=== PATIENT | female | born 1965 | race Caucasian/White ===

== ENCOUNTER 2023-05-16 01:50 | Emergency (ER) | payer SELFPAY ==
--- NOTE | 2023-05-16 01:59 | ED ---
General Adult HPI - General Stated complaint: Overdose Time Seen by Provider: 05/16/23 01:54 - History of Present Illness Initial comments: Dictation was produced using [employer] dictation software. please excuse any grammatical, word or spelling errors. Chief Complaint: 58-year-old female presents with overdose History of Present Illness: Patient's 58-year-old female she is a poor historian. History present are as obtained from EMS. Patient was allegedly altered. Enforcement was called. Patient allegedly received 16 mg of intra nasal Narcan. EMS reports that enforcement notice improvement of her mentation. Patient does have a history of chronic pain in his access to oral morphine. Patient apparently has history of chronic abdominal pain and stomach/abdominal mass.patient is also prescribed benzodiazepines. The ROS documented in this emergency department record has been reviewed and confirmed by me. Those systems with pertinent positive or negative responses have been documented in the HPI. All other systems are other negative and/or noncontributory. - Related Data Allergies Allergy/AdvReac Type Severity Reaction Status Date / Time Bleach (Sodium Hypochlorite) Allergy Unknown Verified 05/16/23 02:01 Review of Systems ROS Statement: Those systems with pertinent positive or pertinent negative responses have been documented in the HPI. ROS Other: All systems not noted in ROS Statement are negative. General Exam - General Exam Comments Initial Comments: PHYSICAL EXAM: General Impression: Alert, arousable, yawning, mildly somnolent HEENT: Normocephalic atraumatic, extra-ocular movements intact, pupils equal and reactive to light bilaterally, mucous membranes moist. Cardiovascular: Heart regular rate and rhythm Chest: Able to complete full sentences, no retractions, no tachypnea Abdomen: abdomen soft, non-tender, non-distended, no organomegaly Musculoskeletal: Pulses present and equal in all extremities, no peripheral edema Motor: no focal deficits noted Neurological: CN II-XII grossly intact, no focal motor or sensory deficits noted Skin: Intact with no visualized rashes Psych: Normal affect and mood Course Vital Signs 05/16/23 05/16/23 05/16/23 01:54 01:55 03:00 Temperature 99.2 F Pulse Rate 115 H 117 H Pulse Rate [ 113 H Lead Cashier ] Respiratory 30 H 28 H Rate Blood Pressure 141/79 188/87 O2 Sat by Pulse 97 94 L Oximetry 05/16/23 04:00 Temperature Pulse Rate 107 H Pulse Rate [ Lead Cashier ] Respiratory 24 Rate Blood Pressure 154/92 O2 Sat by Pulse 93 L Oximetry - Reevaluation(s) Reevaluation #1: 05/16/23 04:20 More history was obtained from patient's ex- was at the bedside. He was alone who had called EMS. He apparently takes care of her. He states that patient has tried to wean herself off of her medications. States that today she took her analgesics and benzodiazepines at the same time. EKG Findings - EKG Comments: EKG Findings:: My EKG interpretation: Ventricular rate 109, sinus tachycardia,. 129, QRS 102, QTc 439. No SC prolongation, no QTC prolongation, no ST or T-wave changes noted.. Overall, this EKG is unremarkable Medical Decision Making - Medical Decision Making Was pt. sent in by a medical professional or institution (, PA, BLOOD DONOR UNIT ASSISTANT, urgent care, hospital, or senior living...) When possible be specific @ -No Did you speak to anyone other than the patient for history (EMS, parent, family, police, friend...)? What history was obtained from this source @ -History obtained from EMS and ex- at the bedside who is primary employment specialist Did you review nursing and triage notes (agree or disagree)? Why? @ -I reviewed and agree with nursing and triage notes Were old charts reviewed (outside hosp., previous admission, EMS record, old EKG, old radiological studies, urgent care reports/EKG's, senior living records)? Report findings @ -No old charts were reviewed Differential Diagnosis (chest pain, altered mental status, abdominal pain women, abdominal pain men, vaginal bleeding, musculoskeletal, weakness, fever, dyspnea, syncope, headache, dizziness, GI bleed, back pain, seizure, CVA, palpatations, mental health)? @ -Differential Altered Mental Status: Hypoglycemia, DKA, hypercapnia, ETOH, overdose, CO poisoning, trauma, myxedema coma, HTN encephalopathy, infection, encephalitis, psychosis, intercranial hemorrhage, hepatic encephalopathy, meningitis, CVA, this is not meant to be an all-inclusive list EKG interpreted by me (3pts min.). @ -See above X-rays interpreted by me (1pt min.). @ -None done CT interpreted by me (1pt min.). @ -Computed tomography scan of brain is unremarkable U/S interpreted by me (1pt. min.). @ -None done What testing was considered but not performed or refused? (CT, X-rays, U/S, labs)? Why? @ -None What meds were considered but not given or refused? Why? @ -None Did you discuss the management of the patient with other professionals (professionals i.e. DrKat, PA, BLOOD DONOR UNIT ASSISTANT, lab, RT, psych nurse, clinical social worker, platform beater, teacher, marketing officer, telehealth case manager)? Give summary @ -No Was smoking cessation discussed for >3mins.? @ -No Was critical care preformed (if so, how long)? @ -No Were there social determinants of health that impacted care today? How? (Ho melessness, low income, unemployed, alcoholism, drug addiction, transportation, low edu. Level, literacy, decrease access to med. care, care home, rehab)? @ -No Was there de-escalation of care discussed even if they declined (Discuss DNR or withdrawal of care, Hospice)? DNR status @ -No What co-morbidities impacted this encounter? (DM, HTN, Smoking, COPD, CAD, Cancer, CVA, ARF, Chemo, Hep., AIDS, mental health diagnosis, sleep apnea, morbid obesity)? @ -None Was patient admitted / discharged? Hospital course, mention meds given and route, prescriptions, significant lab abnormalities, going to OR and other pertinent info. @ -58-year-old female with past medical history of chronic pain presents via EMS from home for polysubstance ingestion. Ex- at the bedside states that patient took her analgesics and benzodiazepines at the same time. She allegedly had responded to Narcan by prehospital staff. Vital signs upon arrival are within acceptable limits. Patient does appear to be benzodiazepine toxic. Patient reevaluated at bedside with improvement of mentation. Patient will be monitored in the emergency department for sobriety and discharged home. Ex- reports that patient appears to be at her usual baseline Undiagnosed new problem with uncertain prognosis? @ -No Drug Therapy requiring intensive monitoring for toxicity (Heparin, Nitro, Insulin, Cardizem)? @ -No Were any procedures done? @ -No Diagnosis/symptom? Acute, or Chronic, or Acute on Chronic? Uncomplicated (without systemic symptoms) or Complicated (systemic symptoms)? @ -Opiate and benzodiazepine coingestion Side effects of treatment? @ -No Exacerbation, Progression, or Severe Exacerbation? @ -No Poses a threat to life or bodily function? How? (Chest pain, USA, NM, pneumonia, PE, COPD, DKA, ARF, appy, cholecystitis, CVA, Diverticulitis, Homicidal, Suicidal, threat to staff... and all critical care pts) @ -No - Lab Data Result diagrams: 05/16/23 02:22 05/16/23 03:00 Lab Results 05/16/23 05/16/23 05/16/23 Range/Units 02:22 02:22 03:00 WBC 13.1 H (3.8-10.6) k/uL RBC 5.64 H (3.80-5.40) m/uL Hgb 15.6 (11.4-16.0) gm/dL Hct 49.1 H (34.0-46.0) % MCV 87.1 (80.0-100.0) fL MCH 27.7 (25.0-35.0) pg MCHC 31.9 (31.0-37.0) g/dL RDW 14.7 (11.5-15.5) % Plt Count 172 (150-450) k/uL MPV 8.6 Neutrophils % 74 % Lymphocytes % 20 % Monocytes % 4 % Eosinophils % 1 % Basophils % 0 % Neutrophils # 9.7 H (1.3-7.7) k/uL Lymphocytes # 2.6 (1.0-4.8) k/uL Monocytes # 0.6 (0-1.0) k/uL Eosinophils # 0.2 (0-0.7) k/uL Basophils # 0.1 (0-0.2) k/uL PT 10.0 (9.0-12.0) sec INR 0.9 (<1.2) APTT 22.8 (22.0-30.0) sec Sodium (137-145) mmol/L Potassium (3.5-5.1) mmol/L Chloride (98-107) mmol/L Carbon Dioxide (22-30) mmol/L Anion Gap mmol/L BUN (7-17) mg/dL Creatinine (0.52-1.04) mg/dL Est GFR (CKD-EPI)AfAm (>60 ml/min/1.73 sqM) Est GFR (CKD-EPI)NonAf (>60 ml/min/1.73 sqM) Glucose (74-99) mg/dL Calcium (8.4-10.2) mg/dL Total Bilirubin (0.2-1.3) mg/dL AST (14-36) U/L ALT (4-34) U/L Alkaline Phosphatase (38-126) U/L Ammonia 29 (<30) umol/L Total Protein (6.3-8.2) g/dL Albumin (3.5-5.0) g/dL Salicylates mg/dL Urine Opiates Screen (NotDetected) Ur Oxycodone Screen (NotDetected) Urine Methadone Screen (NotDetected) Ur Propoxyphene Screen (NotDetected) Acetaminophen ug/mL Ur Barbiturates Screen (NotDetected) U Tricyclic Antidepress (NotDetected) Ur Phencyclidine Scrn (NotDetected) Ur Amphetamines Screen (NotDetected) U Methamphetamines Scrn (NotDetected) U Benzodiazepines Scrn (NotDetected) Urine Cocaine Screen (NotDetected) U Marijuana (THC) Screen (NotDetected) Serum Alcohol mg/dL 05/16/23 05/16/23 Range/Units 03:00 03:54 WBC (3.8-10.6) k/uL RBC (3.80-5.40) m/uL Hgb (11.4-16.0) gm/dL Hct (34.0-46.0) % MCV (80.0-100.0) fL MCH (25.0-35.0) pg MCHC (31.0-37.0) g/dL RDW (11.5-15.5) % Plt Count (150-450) k/uL MPV Neutrophils % % Lymphocytes % % Monocytes % % Eosinophils % % Basophils % % Neutrophils # (1.3-7.7) k/uL Lymphocytes # (1.0-4.8) k/uL Monocytes # (0-1.0) k/uL Eosinophils # (0-0.7) k/uL Basophils # (0-0.2) k/uL PT (9.0-12.0) sec INR (<1.2) APTT (22.0-30.0) sec Sodium 138 (137-145) mmol/L Potassium 3.4 L (3.5-5.1) mmol/L Chloride 100 (98-107) mmol/L Carbon Dioxide 32 H (22-30) mmol/L Anion Gap 6 mmol/L BUN 9 (7-17) mg/dL Creatinine 0.59 (0.52-1.04) mg/dL Est GFR (CKD-EPI)AfAm >90 (>60 ml/min/1.73 sqM) Est GFR (CKD-EPI)NonAf >90 (>60 ml/min/1.73 sqM) Glucose 89 (74-99) mg/dL Calcium 9.2 (8.4-10.2) mg/dL Total Bilirubin 0.6 (0.2-1.3) mg/dL AST 25 (14-36) U/L ALT 19 (4-34) U/L Alkaline Phosphatase 60 (38-126) U/L Ammonia (<30) umol/L Total Protein 6.2 L (6.3-8.2) g/dL Albumin 4.0 (3.5-5.0) g/dL Salicylates <1.0 mg/dL Urine Opiates Screen Detected H (NotDetected) Ur Oxycodone Screen Not Detected (NotDetected) Urine Methadone Screen Not Detected (NotDetected) Ur Propoxyphene Screen Not Detected (NotDetected) Acetaminophen <10.0 ug/mL Ur Barbiturates Screen Not Detected (NotDetected) U Tricyclic Antidepress Detected H (NotDetected) Ur Phencyclidine Scrn Not Detected (NotDetected) Ur Amphetamines Screen Not Detected (NotDetected) U Methamphetamines Scrn Not Detected (NotDetected) U Benzodiazepines Scrn Detected H (NotDetected) Urine Cocaine Screen Not Detected (NotDetected) U Marijuana (THC) Screen Not Detected (NotDetected) Serum Alcohol <10 mg/dL Disposition Clinical Impression: Accidental drug overdose Disposition: HOME SELF-CARE Condition: Good Instructions (If sedation given, give patient instructions): Adult Overdose (ED) Is patient prescribed a controlled substance at d/c from ED?: No Referrals: Nonstaff,Physician [Primary Care Provider] - 1-2 days Time of Disposition: 05:35
[2023-05-16] MEDS ORDERED: LORazepam 2 MG/ML INJ IV STA (02:29)
[2023-05-16 02:41] LABS: Basophils # (A) 0.1 k/uL (0-0.2); Basophils % (A) 0 %; Eosinophils # (A) 0.2 k/uL (0-0.7); Eosinophils % (A) 1 %; HCT 49.1 % (34.0-46.0); HGB 15.6 gm/dL (11.4-16.0); Lymphocytes # (A) 2.6 k/uL (1.0-4.8); Lymphocytes % (A) 20 %; MCH 27.7 pg (25.0-35.0); MCHC 31.9 g/dL (31.0-37.0); MCV 87.1 fL (80.0-100.0); Mean Platelet Volume 8.6; Monocytes # (A) 0.6 k/uL (0-1.0); Monocytes % (A) 4 %; Neutrophils # (A) 9.7 k/uL (1.3-7.7); Neutrophils % (A) 74 %; Platelet Count 172 k/uL (150-450); RBC 5.64 m/uL (3.80-5.40); RDW 14.7 % (11.5-15.5); WBC 13.1 k/uL (3.8-10.6)
[2023-05-16 03:22] LABS: INR 0.9 (<1.2); Partial Thromboplastin Time 22.8 sec (22.0-30.0)
[2023-05-16 03:30] LABS: ALT 19 U/L (4-34); AST 25 U/L (14-36); Acetaminophen <10.0 ug/mL; African American GFR (CKD) >90 (>60 ml/min/1.73 sqM); Alcohol <10 mg/dL; Alkaline Phosphatase 60 U/L (38-126); Anion Gap 6 mmol/L; Blood Urea Nitrogen 9 mg/dL (7-17); Calcium 9.2 mg/dL (8.4-10.2); Carbon Dioxide 32 mmol/L (22-30); Chloride 100 mmol/L (98-107); Glucose 89 mg/dL (74-99); Non-African American GFR(CKD) >90 (>60 ml/min/1.73 sqM); Potassium 3.4 mmol/L (3.5-5.1); Salicylate <1.0 mg/dL; Sodium 138 mmol/L (137-145); Total Bilirubin 0.6 mg/dL (0.2-1.3); Total Protein 6.2 g/dL (6.3-8.2)
--- NOTE | 2023-05-16 03:44 | CT ---
EXAMINATION TYPE: CT brain wo con CT DLP: 1099.4 mGycm, Automated exposure control for dose reduction was used. DATE OF EXAM: 05/16/2023 3:18 AM COMPARISON: None. CLINICAL INDICATION:Female, 58 years old with history of ams, TECHNIQUE: Brain: Multiple axial CT images of the brain were obtained without IV contrast. Coronal and sagittal reformats reviewed. FINDINGS: Brain: Extra-axial spaces: No abnormal extra-axial fluid collections. Ventricular system: Within normal limits Cerebral parenchyma: No acute intraparenchymal hemorrhage or mass effect. The rodas-white junction is well differentiated. Cerebellum: Unremarkable. Mass effect: No evidence of midline shift. Intracranial vasculature: unremarkable Soft tissues: Normal. Calvarium/osseous structures: No depressed skull fracture. Benign hyperostosis frontalis noted. Paranasal sinuses and mastoid air cells: The mastoid air cells are clear. Mild mucosal thickening of the left ethmoid sinus. Visualized orbits: Orbital contents are intact. IMPRESSION: No acute intracranial process.
[2023-05-16 04:10] LABS: Phencyclidine Screen,Urine Not Detected (NotDetected)
[2023-05-16 04:11] LABS: Amphetamine Screen,Urine Not Detected (NotDetected); Barbiturate Screen,Urine Not Detected (NotDetected); Benzodiazepines Screen,Urine Detected (NotDetected); Cocaine Screen,Urine Not Detected (NotDetected); Methadone Screen, Urine Not Detected (NotDetected); Opiate Screen,Urine Detected (NotDetected); Oxycodone Screen, Urine Not Detected (NotDetected); Tricyclic Antidepressant,Urine Detected (NotDetected); Urn Cannabinoid Scrn Not Detected (NotDetected)
[2023-05-16 05:22] VITALS: RESP 24
[2023-05-16 05:58] VITALS: BP 150/86; PULSE 105; TEMP 98.8
== END 2023-05-16 06:08 | disposition home or self-care (01) ==
LOC: EC 01:50
DX: T40.601A Poisoning by unspecified narcotics, accidental (unintentional), initial encounter (principal); Z88.8 Allergy status to other drugs, medicaments and biological substances
CPT/HCPCS: 36415; 93005; 80053; 82140; 85025; 85610; 85730; 80306; 80143; 80320; 80179; 70450; 99285; 96374; J2060

== ENCOUNTER → 2024-06-30 | Outpatient (CLI) | payer OTHER ==
[2024-07-21 06:37] VITALS: BP 133/81; PULSE 73; RESP 17; TEMP 97.9
--- NOTE | 2024-08-04 14:45 | CONS ---
CONSULTATION HISTORY OF PRESENT ILLNESS: April is a 59-year-old white female seen in consultation for Dr. Martin regarding a radiographic abnormality in the right breast. She underwent bilateral mammogram on 01/14/24. Following this, she was noted to have a lesion in the right breast in the lower outer midportion. It was 1.5 cm. This was a routine mammogram. An ultrasound was then done, which revealed at the 7 o'clock position, a lesion for which ultrasound core biopsy was recommended. The patient states that she has had a nodule in her right breast at the 12 o'clock position, which has increased in size over the past year. She did have some radiographic changes in the breast which were felt to be consistent with probable lipomas. The patient also complains of a nodule in her posterior right shoulder which has also increased in size. She has not had any breast surgery, no pain in her breast. She has had bilateral green nipple discharge in the past, never had any bloody nipple discharge. No other lumps, masses, or nodules of concern in either breast. CAFFEINE: Two cups per day, Mountain Dew 3 glasses per day. NICOTINE: Five cigarettes per day since 15, used to smoke 2 packs per day up until 2 years ago. CHOCOLATE: Negative. CONTROL PILLS: Negative. HORMONES: Negative. FAMILY HISTORY: Father: Diagnosed with metastatic cancer, uncertain of the source. She only saw him twice in her life. Sister: Breast cancer, metastatic to her lymph nodes, was treated with chemotherapy approximately 5 years ago. ENDOCRINE: Menarche, 10. G8, P4, M4. Breast-fed, yes. Age of first 17. Menopause, approximately 49. SOCIAL HISTORY: Nicotine: As above. Alcohol: Negative. Drugs: Negative. MEDICAL HISTORY: 1. Agoraphobia. 2. Congestive heart failure. 3. COPD. 4. Mass on pancreas. 5. Blood clot on spleen. 6. GI ulceration. 7. Degenerative joint disease. 8. Seizure history. 9. She is presently on Vicodin 750 q.i.d. SURGICAL HISTORY: 1. EGD. 2. Two C-sections. 3. Hernia. 4. Right knee. REVIEW OF SYSTEMS: HEENT: Negative. BREASTS: As above. CARDIOVASCULAR: Congestive heart failure. RESPIRATORY: Smoker. GI: As above. Constipation, pancreatic cyst. : Negative. MUSCULOSKELETAL: Degenerative joint disease, arthritis. SKIN: Negative. NEUROLOGIC: Tingling in hands and fingers curl. PSYCHIATRIC: Agoraphobia, anxiety, depression. ENDOCRINE: Weight gain. HEMATOLOGIC: Negative. ALLERGIES: Leech. PHYSICAL EXAMINATION: CONSTITUTIONAL: WNL. HEENT: WNL. NECK: WNL. RESPIRATORY: Clear to auscultation. CARDIOVASCULAR: S1, S2. No murmurs. ABDOMEN: Soft, nontender. No masses palpable. SKIN: Negative. NEUROLOGIC: Negative. BREASTS: Bra, 36D. Ptosis, 2/3 bilateral. PALPATION: Right breast, 8 mm mass superficial at the 12 o'clock position, most likely lipoma, fibrocystic changes. No other dominant masses or nodules of concern. Right posterior shoulder, approximately 1 cm subcutaneous lesion, most likely sebaceous cyst. RIGHT AXILLA: No adenopathy of concern. LEFT BREAST: Fibrocystic disease. No dominant masses or nodules of concern. LEFT AXILLA: No adenopathy of concern. IMPRESSION: 1. Abnormal right breast ultrasound. 2. Right breast mass, increasing in size. 3. Right posterior shoulder lesion. 4. Agoraphobia. PLAN: 1. Right breast ultrasound-guided core biopsy with followup after this. 2. Removal of palpable mass, right breast and right posterior shoulder. 3. Preoperative clearance from Dr. Martin. 4. Followup in approximately 1 week after core biopsy, right breast. MMODL / IJN: [id number] /
== END ==
LOC: WWCWWP 14:37
PROVIDERS: ATTEND Surgery
DX: R92.8 Other abnormal and inconclusive findings on diagnostic imaging of breast

== ENCOUNTER → 2024-07-01 | Day surgery (SDC) | payer OTHER ==
--- NOTE | 2024-07-20 11:26 | MM ---
Reason for Exam: Post Procedure Mammogram. Risk Values: Mickie 5 year model risk: 0.9%. NCI Lifetime model risk: 4.9%. Tissue Density: Right: The breasts are heterogeneously dense, which may obscure small masses. Pathology Description: Location: 7 o'clock. Needle Type: Celero Cores: 4 Gauge: 12 The procedure of ultrasound guided core biopsy was explained to the patient. Benefits, alternatives, and risks were discussed. An informed consent was then obtained. The patient was placed in supine positioning for imaging and for the procedure. The overlying skin was prepped and draped in usual sterile fashion. Lidocaine buffered with bicarbonate was used as anesthetic into the skin and subcutaneous tissue up to area of concern in the right 7:00 breast. Under ultrasound guidance, a 12-gauge vacuum assisted biopsy gun device was used to obtain 4 core samples. Following this, a biopsy clip was left in lesion. The patient tolerated the procedure well without any immediate complication. The patient was kept in the radiology department for short stay after the procedure and then discharged home in stable condition. Postprocedure mammogram: The patient was transferred to mammography for physician ordered post procedure mammogram for clip placement verification. Impression: Successful, uncomplicated ultrasound guided core biopsy of area of concern in the right 7:00 breast, full pathology results to follow. Pathology Results: Result: Benign, Fibroadenoma. Pathology and radiology were reviewed. Findings are concordant. RIGHT BREAST, SEVEN O'CLOCK, US GUIDED CORE BIOPSY: Compatible with sclerotic fibroadenoma. Overall Assessment: Benign Assessment: MG diagnostic mammo RT wo CAD - Right: Benign, BI-RAD 2. Management: Screening Mammogram of the right breast in 6 months. Electronically signed and approved by: Jayson Guillermo M.D. Radiologis
== END ==
LOC: RADUSWWP 10:07
PROVIDERS: ATTEND Surgery
DX: D24.1 Benign neoplasm of right breast (principal)
CPT/HCPCS: 77065; 88305

== ENCOUNTER → 2024-08-05 | Outpatient (CLI) | payer OTHER ==
[2024-08-05 12:15] VITALS: BP 133/84; PULSE 107; RESP 18; TEMP 98.2
--- NOTE | 2024-08-05 12:42 | P.PN ---
Subjective Progress Note Date: 08/05/24 Principal diagnosis: mass right breast and right shoulder April is a 59-year-old female seen for evaluation regarding a mammographic abnormality in the right breast. She had a bilateral mammogram in 01-14-2024 which revealed a lesion in the lower outer aspect. An ultrasound was done which revealed a mass at the 7 o'clock position. Ultrasound core biopsy was recommended. The ultrasound core biopsy was performed on 07-01-2024 and findings were compatible with a sclerotic fibroadenoma. Additionally ultrasound the patient was noted to have at the 12 o'clock position a 1.3 cm in greatest dimension findings suggestive of a lipoma. She states that the small area of nodularity have been present for approximately a year. The patient had never had any surgery on her breast. She was denying any breast pain. She did have some intermittent nipple discharge which was green and milky bilaterally there was never any blood noted. Noted the patient has agoraphobia she is afraid to leave her home Caffeine: 2 cups/day as well as 3 cups of Mountain Dew per day Nicotine: 5 cigarettes/day since 15 used to smoke 2 packs/day until 2 years ago Chocolate: Negative control pills/hormones: Negative Family history: Father: Question type of cancer Sister: Question type of cancer told in her lymph nodes Hormone history: Menarche: 10 M4, she did breast-feed, her first live was at 17 Menopause: Stopped 10 years ago History: Agoraphobia CHF COPD Ulcer in the GI tract Degenerative joint disease Seizure history Surgical history: EGD 2 C-sections Hernia repair Right knee surgery Review of systems: HEENT: Negative Breast: As above Cardiovascular: CHF Respiratory: Smoker GI: Constipation/pancreatic cyst : Negative Musculoskeletal: Degenerative joint disease Skin: Negative Neuro: Tingling in her hands and fingers Psych: Anxiety/agoraphobia/depression Endocrine: Weight gain Hematologic: Negative Allergies: Bleach History: Nicotine: As above Alcohol: Negative drugs: Negative Objective - Vital Signs Vital signs: Vital Signs Temp 98.2 F 08/05/24 12:12 Pulse 107 H 08/05/24 12:12 Resp 18 08/05/24 12:12 BP 133/84 08/05/24 12:12 Pulse Ox 97 08/05/24 12:12 FiO2 Intake & Output 0908/05/24 08/05/24 18:59 06:59 18:59 Weight 75.75 kg - Constitutional General appearance: Present: cooperative - EENT Eyes: Present: EOMI ENT: Present: hearing grossly normal - Neck Neck: Present: normal ROM - Respiratory Respiratory: bilateral: CTA - Cardiovascular Rhythm: regular Heart sounds: normal: S1, S2 - Integumentary Integumentary: Present: normal turgor - Musculoskeletal Musculoskeletal: Present: gait normal - Psychiatric Psychiatric: Present: A&O x's 3, appropriate affect, intact judgment & insight - Additional findings Additional findings: Breast examination: Bra: 36D Grade 2 out of 3 ptosis lateral Palpation: Right breast: Positional exam fibrocystic breast changes 8 mm superficial lesion at the 12 o'clock position of the right breast/palpable lipoma, probable right shoulder sebaceous cyst approximately 1 cm in size Right axilla: No adenopathy of concern Left breast: Multi positional exam no dominant masses or nodules of concern Left axilla: No adenopathy of concern Assessment and Plan Assessment: Impression: Patient's status post core biopsy of area of concern in the right breast consistent with a sclerotic fibroadenoma Palpable lesion right breast Probable sebaceous cyst right breast Plan: Excision palpable lesion right breast at 12 oclock about 12 cm from the nipple on the chest wall Repeat right breast mammogram in 6 months to follow for the sclerotic fibroadenoma Removal of sebaceous cyst right shoulder bilateral mammogram in January on schedule clearance Dr. Martin CC: Dr. Martin
== END ==
LOC: WWCWWP 11:20
PROVIDERS: ATTEND Surgery
DX: N63.13 Unspecified lump in the right breast, lower outer quadrant (principal); D31.41 Benign neoplasm of right ciliary body; L98.8 Other specified disorders of the skin and subcutaneous tissue; Z88.8 Allergy status to other drugs, medicaments and biological substances; Z87.891 Personal history of nicotine dependence

== ENCOUNTER 2024-08-09 07:34 | Day surgery (SDC) | payer OTHER ==
[2024-08-03 11:32] VITALS: BMI 30.5
[~2024-08-09 07:34] MED LIST: HYDROmorphone 0.5 MG/0.5 ML SYRINGE IVP PRN; LIDOCAINE 1% (10MG/ML) FOR IV START INTRADERMA PRN; MIDAZOLAM 2 MG/2 ML VIAL IV PRN; Pre Op ABX Message 1 EACH MISC MISCELLANE ONE; fentaNYL (PF) 50 MCG/ML 2 ML AMP IVP PRN
[2024-08-09] MEDS: IV FLUID CONTINUATION 1,000 ML IV ONE (08:15)
[2024-08-09] MEDS: HEPARIN SODIUM,PORCINE 5,000 UNIT/ML 1 ML VIAL SQ PRN (08:28)
[2024-08-09] MEDS: DEXAMETHASONE SOD PHOSPHATE 4 MG/ML 1 ML VIAL IV ONE (08:28)
[2024-08-09] MEDS: LACTATED RINGERS 1,000 ML IV SCH (08:28)
[2024-08-09] MEDS: ONDANSETRON 4 MG/2 ML VIAL IVP ONE (08:28)
[2024-08-09] MEDS: ACETAMINOPHEN TAB 500 MG TAB PO PRN (08:29)
[2024-08-09] MEDS ORDERED: ceFAZolin 1 GM/50 ML BAG (PMX) ONE (08:56)
[2024-08-09] MEDS ORDERED: MIDAZOLAM 2 MG/2 ML VIAL ONE (08:56)
[2024-08-09] MEDS ORDERED: LIDOCAINE 1% INJ 10MG/ML (20 ML MDV) ONE (08:56)
[2024-08-09] MEDS ORDERED: SUCCINYLCHOLINE CHLORIDE 200 MG/10 ML VIAL IV ONE (08:56)
[2024-08-09] MEDS ORDERED: fentaNYL (PF) 50 MCG/ML 2 ML AMP ONE (08:56)
[2024-08-09] MEDS ORDERED: PROPOFOL 10 MG/ML 20 ML VIAL IV ONE (08:56)
[2024-08-09] MEDS ORDERED: KETOROLAC 15 MG/ML 1 ML VIAL ONE (08:56)
[2024-08-09] MEDS: SODIUM CHLORIDE 0.9% 50 ML with ceFAZolin 2,000 MG IV ONE (09:01)
[2024-08-09] MEDS: LIDOCAINE 1% INJ 10MG/ML (20 ML MDV) SQ ONE ×3 (09:24)
--- NOTE | 2024-08-09 09:53 | P.BCAON ---
Date of Procedure: 08/09/24 Preoperative Diagnosis: Lesion right back, and right breast/chest wall Postoperative Diagnosis: Same Procedure(s) Performed: Excision lesion right back, and right breast/chest wall Anesthesia: ANNAMARIE Surgeon: Vesta Burgos Estimated Blood Loss (ml): 2 IV fluids (ml): 350 Pathology: other Condition: stable Disposition: same day Indications for Procedure: Palpable lesion right chest wall/breast/painful lesion right posterior shoulder Operative Findings: Lipoma on both chest wall and right posterior back/shoulder Description of Procedure: The patient was taken to the operating room and following induction of anesthesia the patient was positioned on her left side. The area of palpable lesion in the right posterior shoulder/back was prepped using Betadine. An incision was made and carried down through the skin and subcutaneous tissue. A palpable approximately 1-1/2 cm lipoma was identified. This was consistent with the preoperative palpable lesion and site. This was excised. It was 1-1/2 cm x 1-1/2 cm. After we are sure that hemostasis was attained the deep tissues were closed using 3-0 Vicryl suture. The skin was closed using 3-0 nylon suture. The patient was then positioned on her back. The right breast/chest wall was prepped and draped in a sterile fashion. An incision was made over the palpable abnormality. A lipomatous lesion was identified. This was 1 cm x 1 cm in size. This was excised. The skin and subcutaneous tissue over this lesion were excised as well. The deep tissues were approximated using 3-0 Vicryl suture. This was after we are sure that hemostasis was attained. The skin was closed using a 4-0 Monocryl. Surgical glue was applied. 1% lidocaine was used in each incision. The patient tolerated the procedure in stable condition. All instru ment and sponge counts were correct at the end of the case. 2 cc of 1% lidocaine were used on her back, and 5 cc of 1% lidocaine were used on the chest wall lesion area.
[2024-08-09 10:16] VITALS: TEMP 97
[2024-08-09] MEDS: HYDROcodone/APAP 7.5-325MG 1 EACH TAB PO ONE (10:55)
[2024-08-09 11:10] VITALS: RESP 16
[2024-08-09 11:19] VITALS: BP 133/78; PULSE 82
== END 2024-08-09 11:39 | disposition home or self-care (01) ==
LOC: OR 07:34
PROVIDERS: ATTEND Surgery
DX: D17.1 Benign lipomatous neoplasm of skin and subcutaneous tissue of trunk (principal); F40.00 Agoraphobia, unspecified; F17.210 Nicotine dependence, cigarettes, uncomplicated; E78.5 Hyperlipidemia, unspecified; I10 Essential (primary) hypertension; G40.909 Epilepsy, unspecified, not intractable, without status epilepticus; Z79.899 Other long term (current) drug therapy
CPT/HCPCS: 21930; 21555; 88304; 88305; 88307; J2250; J0330; J1644; J1100; J2405; J0690 ×2; J2003; J3010; J1885; J2704

== ENCOUNTER → 2024-08-18 | Outpatient (CLI) | payer OTHER ==
[2024-08-18 14:23] VITALS: BP 146/86; PULSE 96; RESP 17; TEMP 97.6
--- NOTE | 2024-08-18 14:56 | P.BCPO ---
Progress Note - Text Progress Note Date: 08/18/24 April is status post resection of soft tissue lesions from her back and right breast on 08-09-24. The pathology was lipoma and benign skin. Lamination: Incisions clean and dry She has some ecchymosis over her breast but no evidence of any hematoma or infection Lungs: Clear Heart: Regular rate and rhythm Plan: Suture removal back Follow-up in 1 month to assure that the ecchymosis has resolved Follow-up sooner any questions or concerns Functional assessment: Arm abduction this limited mobility to the left upper extremity which is unchanged from preoperative. Post Op Education - Post Op Education Post Op Education Provided Date: 08/18/24 - Functional Assessment Performed?: Yes (difficulty with arm abduc) Referal Provided?: No (patient declined) Path Report - Was patient given path report? Path Report Date Given: 08/18/24
== END ==
LOC: WWCWWP 13:23
PROVIDERS: ATTEND Surgery

== ENCOUNTER 2025-05-30 06:44 | Day surgery (SDC) | payer OTHER ==
[~2025-05-30 06:44] MED LIST changes: -HYDROmorphone 0.5 MG/0.5 ML SYRINGE IVP PRN; -MIDAZOLAM 2 MG/2 ML VIAL IV PRN; -Pre Op ABX Message 1 EACH MISC MISCELLANE ONE; -fentaNYL (PF) 50 MCG/ML 2 ML AMP IVP PRN
[2025-05-30 07:06] VITALS: TEMP 97
[2025-05-30] MEDS: IV FLUID CONTINUATION 1,000 ML IV ONE (07:15)
[2025-05-30] MEDS: LACTATED RINGERS 1,000 ML IV SCH (07:18)
[2025-05-30] MEDS ORDERED: LIDOCAINE 2% (PF) 20 MG/ML 5 ML VIAL ONE (07:48)
[2025-05-30] MEDS ORDERED: PROPOFOL 10 MG/ML 20 ML VIAL IV ONE (07:48)
--- NOTE | 2025-05-30 08:10 | P.PCN ---
Date of Procedure: 05/30/25 Procedure(s) Performed: Brief history: Patient is a pleasant 60-year-old white female scheduled for an elective upper endoscopy as well as colonoscopy as a part of evaluation of abdominal pain, abdominal bloating, intermittent nausea and change in bowel habits of several years. Procedure performed: Esophagogastroduodenoscopy with biopsy Colonoscopy Preoperative diagnosis: Chronic abdominal pain and nausea Abdominal bloating and change in bowel habits Anesthesia: [facility] [place] Procedure: After informed consent was obtained from the patient was brought into the endoscopy unit and IV sedation was administered by anesthesia under continuous monitoring. Initially upper endoscopy was done. The Olympus GF 160 video endoscope was inserted inserted into the mouth and esophagus intubated without any difficulty and was gradually advanced into the stomach and duodenum and carefully examined. The bulb and second part of the duodenum appeared normal. Biopsies were done from the duodenum to rule out celiac disease. The scope was then withdrawn into the stomach adequately insufflated with air and upon careful examination the antrum had linear areas of erythema consistent with gastritis and biopsies were done from this area. Mucosa of the body, cardia and fundus appeared normal. The scope was then withdrawn into the esophagus. The GE junction was located at 40 cm to the incisors. It appeared irregular with no erythema erosions or ulcerations. Biopsies were done from the distal esophagus. Rest of the esophagus appeared normal. Patient tolerated the procedure well. At this time the patient continued to remain sedation. Initial digital rectal examination was normal. Olympus CF 160 video colonoscope was then inserted into the rectum and gradually advanced to the cecum without any difficulty. Careful examination was performed as the scope was gradually being withdrawn. The prep was excellent. Terminal ileum was intubated and 20 cm visualized appeared normal. The cecum, ascending colon, normal. The transverse colon there was a 7 mm polyp that was removed by cold snare polypectomy. In the proximal rectum there was a 3 mm polyp removed by cold biopsy. Rest of the transverse colon, descending colon, sigmoid colon and rectum appeared normal. Scattered sigmoid diverticulosis seen. Random biopsies were done from the ascending and descending colon to rule out coloscopic/collagenous colitis. Retroflexion was performed in the rectum and no lesions were noted. Patient tolerated the procedure well. Impression: 1. Upper endoscopy revealed mild antral gastritis and irregular GE junction but no evidence of esophagitis 2. Colonoscopy revealed: 7 mm transverse colon polyp status post cold snare polypectomy 3 mm proximal rectal polyp status post cold biopsy scattered sigmoid diverticulosis. Recommendations: Findings of this examination were discussed with the patient as well as her family. She was advised to follow-up with the biopsy results. If the biopsy reveals adenoma she can have repeat colonoscopy in 5 years. Follow-up in the office in 2 to 3 weeks.
[2025-05-30 08:32] VITALS: BP 166/90; PULSE 83; RESP 16
== END 2025-05-30 08:47 | disposition home or self-care (01) ==
LOC: ORWHC2ENDO 06:44
PROVIDERS: ATTEND Internal Medicine Gastroenterology
DX: D12.3 Benign neoplasm of transverse colon (principal); K62.1 Rectal polyp; K21.9 Gastro-esophageal reflux disease without esophagitis; K57.30 Diverticulosis of large intestine without perforation or abscess without bleeding; G89.29 Other chronic pain; I11.0 Hypertensive heart disease with heart failure; I50.9 Heart failure, unspecified; E78.5 Hyperlipidemia, unspecified; J44.9 Chronic obstructive pulmonary disease, unspecified; G40.909 Epilepsy, unspecified, not intractable, without status epilepticus; M06.9 Rheumatoid arthritis, unspecified; M19.90 Unspecified osteoarthritis, unspecified site; F41.9 Anxiety disorder, unspecified; F32.A Depression, unspecified; Z91.048 Other nonmedicinal substance allergy status; F17.200 Nicotine dependence, unspecified, uncomplicated; Z79.51 Long term (current) use of inhaled steroids; Z79.899 Other long term (current) drug therapy
CPT/HCPCS: 88305; 45385; 43239; 45380; J2704; J2003